=== PATIENT | male | born 1990 | race Two or more races ===

== ENCOUNTER 2023-07-15 22:28 | Emergency (ER) | payer MEDICAID ==
[~2023-07-15] VITALS: Ht 190.5 cm; Wt 63.6 kg
[2023-07-15 22:34] VITALS: BP 112/71; PULSE 67; RESP 15; TEMP 97.9
[2023-07-15] MEDS ORDERED: ONDANSETRON HCL 4 MG/2 ML VIAL IM ONE (23:15)
[2023-07-15] MEDS ORDERED: KETOROLAC TROMETHAMINE 60 MG/2 ML VIAL IM ONE (23:15)
[2023-07-15] MEDS ORDERED: LORazepam 1 MG TABLET PO ONE (23:15)
[2023-07-15] MEDS ORDERED: ONDA-104 PO (23:17)
[2023-07-15] MEDS ORDERED: IBUP-1492 PO (23:17)
== END 2023-07-15 23:49 | disposition home or self-care (01) ==
LOC: EMS 22:30
DX: G43.909 Migraine, unspecified, not intractable, without status migrainosus (principal)
CPT/HCPCS: 99284; 96372; J1885; J2405